=== PATIENT | male | born 1995 | race Caucasian/White ===

== ENCOUNTER 2021-10-13 22:51 | Emergency (ER) | payer MEDICAID ==
[~2021-10-13] VITALS: Ht 172.7 cm; Wt 79.1 kg
[2021-10-13 23:46] LABS: BASOPHILS # (AUTO) 0.1 X10'3 (0-0.2); BASOPHILS % (AUTO) 1.8 % (0-1); EOSINOPHILS # (AUTO) 0.2 X10'3 (0-0.9); EOSINOPHILS % (AUTO) 2.8 % (0-6); HEMOGLOBIN 12.1 g/dl (14.0-17.9); LYMPHOCYTES # (AUTO) 2.1 X10'3 (1.1-4.8); LYMPHOCYTES % (AUTO) 27.4 % (21-51); MEAN CORPUSCULAR HEMOGLOBIN 25.8 PG (27.0-31.0); MEAN CORPUSCULAR HGB CONC 32.7 g/dL (33.0-36.5); MEAN CORPUSCULAR VOLUME 78.9 FL (78-98); MEAN PLATELET VOLUME 7.7 FL (7.4-10.4); MONOCYTES # (AUTO) 0.5 X10'3 (0-0.9); MONOCYTES % (AUTO) 6.1 % (2-12); NEUTROPHILS # (AUTO) 4.7 X10'3 (1.8-7.7); NEUTROPHILS % (AUTO) 61.9 % (42-75); PLATELET COUNT 248 X10'3 (140-440); RED BLOOD COUNT 4.69 X10'6 (4.70-6.10); WHITE BLOOD COUNT 7.6 X10'3 (4.5-11.0)
[2021-10-13 23:51] LABS: ALANINE AMINOTRANSFERASE 25 U/L (12-78); ALBUMIN 3.2 G/DL (3.4-5.0); ALKALINE PHOSPHATASE 61 IU/L (46-116); ANION GAP 3 (8-16); BLOOD UREA NITROGEN 23 MG/DL (7-18); CHLORIDE 105 MMOL/L (99-107); CREATININE 1.15 MG/DL (0.60-1.10); ETHANOL < 0.010 GM/DL (0.0-0.010); POTASSIUM 3.2 MMOL/L (3.5-5.1); SODIUM 137 MMOL/L (135-145); TOTAL CARBON DIOXIDE 28.8 MMOL/L (24-32); eGFR 76 ML/MIN
[2021-10-14 00:05] LABS: ASPARTATE AMINO TRANSFERASE 38 U/L (10-37)
[2021-10-14 00:07] LABS: ALBUMIN/GLOBULIN RATIO 0.5 (1.1-1.5); BILIRUBIN,TOTAL 0.2 MG/DL (0.1-1.0); GLUCOSE 89 MG/DL (70-104); TOTAL PROTEIN 9.2 G/DL (6.4-8.2)
[2021-10-14 00:19] LABS: CALCIUM 8.3 MG/DL (8.5-10.1)
[2021-10-14] MEDS ORDERED: potassium Cl 20 mEq SR tablet PO STA (07:23)
--- NOTE | 2021-10-14 07:50 | NUR ---
pt laying in bed appears to be sleeping. no s/s acute distress noted. pt up to bathroom for urine sample and then returned back without issue.
[2021-10-14 08:13] LABS: URINE AMPHETAMINE SCREEN POSITIVE (Neg); URINE BARBITUATE SCREEN NEGATIVE (Neg); URINE BENZODIAZEPINES SCREEN NEGATIVE (Neg); URINE CANNABINOID SCREEN POSITIVE (Neg); URINE COCAINE SCREEN NEGATIVE (Neg); URINE METHADONE SCREEN NEGATIVE (Neg); URINE OPIATE SCREEN NEGATIVE (Neg); URINE PHENCYCLIDINE SCREEN NEGATIVE (Neg)
[2021-10-14 08:36] LABS: CLARITY,URINE CLEAR (Clear); COLOR,URINE YELLOW (Yellow); GLUCOSE, URINE NEGATIVE (Neg); KETONES,URINE NEGATIVE (Neg); LEUKOCYTE ESTERASE ,URINE NEGATIVE (Neg); NITRITES, URINE NEGATIVE (Neg); OCCULT BLOOD,URINE NEGATIVE (Neg); PROTEIN,URINE NEGATIVE (Neg); UROBILINOGEN,URINE 0.2 E.U/dL (0.2-1.0)
[2021-10-14 08:45] LABS: UA COLLECTION TYPE URINAL
[2021-10-14 14:02] VITALS: BP 124/61
--- NOTE | 2021-10-14 14:05 | NUR ---
[facility] called for pre-review for possible acceptance of patient.
--- NOTE | 2021-10-14 14:45 | NUR ---
[facility] office called. pt accepted to [facility] in [place]. accepted at 14:[address] norton and pt will be going to [facility]. called report to [facility] and [facility] office made aware. they state they will send a parcel post truck driver soon to come picker patient
== END 2021-10-14 15:13 ==
LOC: ER 22:52
DX: T14.91XA Suicide attempt, initial encounter (principal); F31.9 Bipolar disorder, unspecified; F20.9 Schizophrenia, unspecified; Z53.21 Procedure and treatment not carried out due to patient leaving prior to being seen by health care provider
CPT/HCPCS: 36415; 80053; 80305; 80320; 81003; 85025; 99285